=== PATIENT | female | born 1975 | race Caucasian/White ===

== ENCOUNTER 2019-11-15 19:12 | Emergency (ER) | payer SELFPAY ==
[2019-11-15] MEDS ORDERED: Proparacaine 0.5% Opth 15 ML BOT ONE (19:23)
[2019-11-15] MEDS ORDERED: Fluorescein Opthalmic Strip ONE (19:23)
== END 2019-11-15 20:16 | disposition home or self-care (01) ==
LOC: MADERS 19:12
DX: S05.02XA Injury of conjunctiva and corneal abrasion without foreign body, left eye, initial encounter (principal); F17.210 Nicotine dependence, cigarettes, uncomplicated; X58.XXXA Exposure to other specified factors, initial encounter
CPT/HCPCS: 99283